=== PATIENT | female | born 1965 | race Caucasian/White ===

== ENCOUNTER 2020-02-05 20:38 | Emergency (ER) | payer MEDICAID ==
[~2020-02-05] VITALS: Ht 157.5 cm; Wt 65.8 kg
--- NOTE | 2020-02-05 22:05 | NUR ---
X1 PT BIBSELF C/O L LOWER EXT PAIN X1 WEEK PROGRESSIVELY GETTING WORSE. PT HAS DIFFICULTY BEARING WEIGHT TO LOWER EXT. PT AAOX4. RESPIRATIONS EVEN AND UNLABORED. SKIN INTACT. VITAL SIGNS STABLE. NO ACUTE DISTRESS NOTED AT THIS TIME. WILL CONTINUE TO MONITOR
[2020-02-05 23:49] VITALS: BP 103/65
--- NOTE | 2020-02-05 23:49 | NUR ---
Patient discharged to home in stable condition. Written and verbal after care instructions given. Patient verbalizes understanding of instruction.
== END 2020-02-05 23:50 | disposition home or self-care (01) ==
LOC: ER 20:44
DX: S89.82XA Other specified injuries of left lower leg, initial encounter (principal); X58.XXXA Exposure to other specified factors, initial encounter; Y93.89 Activity, other specified; Y92.89 Other specified places as the place of occurrence of the external cause; Y99.8 Other external cause status
CPT/HCPCS: 73564-TC

== ENCOUNTER 2020-08-29 21:38 | Emergency (ER) | payer SELFPAY ==
[~2020-08-29] VITALS: Ht 160 cm; Wt 65.8 kg
[2020-08-29 21:47] VITALS: BP 128/78
--- NOTE | 2020-08-29 22:02 | NUR ---
radiology in room for xray
[2020-08-29] MEDS ORDERED: IBUP-1957 PO (22:19)
== END 2020-08-29 22:58 | disposition home or self-care (01) ==
LOC: ER 21:38
DX: S63.592A Other specified sprain of left wrist, initial encounter (principal); W03.XXXA Other fall on same level due to collision with another person, initial encounter; Y93.89 Activity, other specified; Y92.89 Other specified places as the place of occurrence of the external cause; Y99.8 Other external cause status
CPT/HCPCS: 73130-TC